=== PATIENT | female | born 1990 | race Caucasian/White ===

== ENCOUNTER 2018-09-07 08:38 | Outpatient (CLI) | payer OTHER | END 2018-09-07 08:45 | disposition home or self-care (01) | LOC: NUCLEAR 08:38 | DX: E04.1 Nontoxic single thyroid nodule (principal) | CPT/HCPCS: 78013; A9512 ==

== ENCOUNTER 2019-02-10 10:38 | Emergency (ER) | payer OTHER ==
[~2019-02-10] VITALS: Ht 175.3 cm; Wt 95.3 kg
[2019-02-10] MEDS ORDERED: LODINE300 MG (10:59)
== END 2019-02-10 13:44 | disposition home or self-care (01) ==
LOC: ER 10:38
DX: S30.0XXA Contusion of lower back and pelvis, initial encounter (principal); S90.31XA Contusion of right foot, initial encounter; W18.39XA Other fall on same level, initial encounter; Y93.89 Activity, other specified; Y92.098 Other place in other non-institutional residence as the place of occurrence of the external cause; Y99.8 Other external cause status

== ENCOUNTER 2019-04-25 09:01 | Outpatient (CLI) | payer OTHER ==
[~2019-04-25 09:01] MED LIST: LODINE300 MG
== END 2019-04-25 09:08 | disposition home or self-care (01) ==
LOC: SONOGRAMA 09:01 → MAMO-SONO 09:15
DX: K76.0 Fatty (change of) liver, not elsewhere classified (principal)

== ENCOUNTER 2019-09-12 09:25 | Emergency (ER) | payer OTHER ==
[~2019-09-12] VITALS: Ht 175.3 cm; Wt 95.3 kg
[2019-09-12] MEDS ORDERED: CANABIS (09:59)
[2019-09-12] MEDS ORDERED: NASAL MIST126 ML NASAL (13:37)
[2019-09-12] MEDS ORDERED: LEVSIN/SL0.125 MG SL (13:37)
== END 2019-09-12 13:44 | disposition home or self-care (01) ==
LOC: ER 09:25
DX: K29.70 Gastritis, unspecified, without bleeding (principal)

== ENCOUNTER 2019-12-07 06:20 | Day surgery (SDC) | payer OTHER ==
[~2019-12-07 06:20] MED LIST changes: +CANABIS; +LEVSIN/SL0.125 MG SL; +NASAL MIST126 ML NASAL
== END 2019-12-07 14:31 | disposition home or self-care (01) ==
LOC: CIR.AMB 06:20
DX: K62.0 Anal polyp (principal); K60.1 Chronic anal fissure; K62.4 Stenosis of anus and rectum